=== PATIENT | female | born 1960 | race American Indian/Alaskan Native ===

== ENCOUNTER 2018-10-29 10:48 | Outpatient (CLI) | payer BC ==
--- NOTE | 2018-10-29 11:36 | Mammography Report ---
Bilateral mammogram: No previous studies of the liver. CAD study utilized. Findings: Heterogeneous breast parenchyma bilaterally. Focal asymmetry in the left mid breast. A focal architectural distortion in the lower posterior right breast. Benign axillary nodes. No microcalcification. Impression: Focal asymmetry left breast and focal architectural distortion right breast. Recommend comparison with previous studies. If previous studies are not available spot compression and sonographic examination recommended.
--- NOTE | 2018-10-29 13:06 | XRay Report ---
Cervical spine 4 views: History: Severe achalasia. Findings: Normal height of vertebral bodies. Decrease in height of C4-C5, C5-C6 and C6-7 with evidence of cervical spondylosis. Normal prevertebral soft tissue. No fracture. Impression: Spondylosis lower cervical spine.
== END 2018-10-29 10:49 | disposition home or self-care (01) ==
LOC: MAMMO 10:48
PROVIDERS: ATTEND Clinical Nurse Specialist Adult Health
DX: Z12.31 Encounter for screening mammogram for malignant neoplasm of breast (principal); M47.812 Spondylosis without myelopathy or radiculopathy, cervical region; Z88.0 Allergy status to penicillin
CPT/HCPCS: 72050; 77067

== ENCOUNTER 2021-08-21 11:33 | Outpatient (CLI) | payer OTHER ==
--- NOTE | 2021-08-21 13:57 | XRay Report ---
CHEST 2 VIEWS INDICATION / CLINICAL INFORMATION: R76.12. COMPARISON: 05/15/2018 FINDINGS: SUPPORT DEVICES: None. HEART / MEDIASTINUM: No significant abnormality. LUNGS / PLEURA: No significant pulmonary or pleural abnormality. No pneumothorax. ADDITIONAL FINDINGS: No significant additional findings. IMPRESSION: 1. No acute findings. Signer Name: Amado Anderson MD Signed: 08/21/2021 1:53 PM Workstation Name: [email or web address]
--- NOTE | 2021-08-22 08:59 | Mammography Report ---
DIGITAL SCREENING MAMMOGRAM WITH CAD, 08/21/2021 CLINICAL INFORMATION / INDICATION: Routine screening TECHNIQUE: Digital bilateral 2D mammography was obtained in the craniocaudal and mediolateral obliqu e projections. This examination was interpreted with the benefit of Computer-Aided Detection analysis . COMPARISON: 10/29/2018 FINDINGS: Breast Density: The breasts are heterogeneously dense, which may obscure small masses. No dominant mass, suspicious calcifications, or architectural distortion in either breast. Mild benign-appearing calcifications are noted. IMPRESSION: No mammographic evidence of malignancy. Follow up recommendation: Routine yearly BI-RADS Category 2: BENIGN. A "normal" or negative report should not discourage follow up or biopsy of a clinically significant f inding. A written summary of these findings will be mailed to the patient. The patient will be entered into a mammography reporting system which will generate a reminder letter for the patient's next appointmen t at the appropriate interval. The [employer] recommends yearly mammograms starting at age 40 and continuing as l yevgeniy as a woman is in good health. Breast MRI is recommended for women with an approximate 20-25% or greater lifetime risk of breast cancer, including women with a strong family history of breast or ova kathy cancer or who have been treated for Hodgkin's disease. Signer Name: Enrrique Woodson MD Signed: 08/22/2021 8:54 AM Workstation Name: [id number]
== END 2021-08-21 11:34 | disposition home or self-care (01) ==
LOC: XRAY 11:33
PROVIDERS: ATTEND Clinical Nurse Specialist Adult Health
DX: Z12.31 Encounter for screening mammogram for malignant neoplasm of breast (principal); R76.12 Nonspecific reaction to cell mediated immunity measurement of gamma interferon antigen response without active tuberculosis; N64.89 Other specified disorders of breast
CPT/HCPCS: 71046; 77067

== ENCOUNTER 2021-10-19 15:16 | Emergency (ER) | payer OTHER ==
[2021-10-19] MEDS ORDERED: ASPIRIN 325 MG TAB PO ONE (16:02)
--- NOTE | 2021-10-19 16:03 | Emergency Department Report ---
ED Chest Pain HPI - General Chief Complaint: Chest Pain Stated Complaint: SOB/CHEST PAINS PUI?: No Time Seen by Provider: 10/19/21 15:56 Source: patient Mode of arrival: Ambulatory Limitations: No Limitations - History of Present Illness Initial Comments: Patient is a 61-year-old female that presents emergency room with complaints of chest pain or shortness of breath. Patient states her chest pain started 2 days ago. Patient states is in the center of her chest. Patient states her chest pain is worse with exertion and better with rest. Patient states her shortness of breath started approximately 2 weeks ago. Patient states her shortness of breath is worsening. Patient states her shortness of breath is better with rest and worse with exertion. Patient states she not able to walk 5 or 6 steps without getting out of breath. Patient denies diaphoresis. Patient denies fever and chills. Patient denies nausea and vomiting. Patient states she has a past medical history of hypertension. Patient that she is taking losartan and a diuretic for her blood pressure. Patient states that her blood pressure is controlled on her current regimen. Patient states she went to her primary care today and her primary care resented to the emergency room for evaluation. Patient states her primary care told her it could be CHF. Patient denies recent travel. Patient denies recent international travel. Patient denies exposure to the novel coronavirus. Patient denies sick contacts. Patient denies fever and chills. Patient denies cough. Patient denies diarrhea. Patient denies coming in contact with anybody with symptoms of the novel coronavirus. MD Complaint: chest pain -: Sudden Onset: during rest Pain Location: substernal, left chest Pain Radiation: LUE Severity: moderate Severity scale (0 -10): 6 Quality: aching, heaviness, pressure, squeezing Consistency: constant Improves With: rest Worsens With: exertion re: dyspnea, sense of impending doom. denies: nausea, vomting, diaphoresis Other Symptoms: leg swelling, palpitations. denies: cough, fever, syncope, rash, acid taste in mouth, burping Treatments Prior to Arrival: none Aspirin use within the Past 7 Days: (0) No - Related Data On Oral Contraceptives: No Previous Rx's Medication Instructions Recorded Last Taken Type Furosemide [Lasix] 20 mg PO QDAY 30 Days #30 tablet 10/19/21 Unknown Rx Potassium Chloride [K-Dur] 10 meq PO QDAY 30 Days #30 tab 10/19/21 Unknown Rx Allergies Allergy/AdvReac Type Severity Reaction Status Date / Time Penicillins AdvReac Swelling Verified 10/19/21 15:17 Heart Score - HEART Score History: Slightly suspicious EKG: Normal Age: 45-65 Risk factors: No known risk factors Troponin: < normal limit HEART Score: 1 - EKG Read Time Time EKG Completed: 15:19 EKG Read Time: 15:23 ED Review of Systems ROS: Stated complaint: SOB/CHEST PAINS Other details as noted in HPI Constitutional: denies: chills, fever Eyes: denies: eye pain, eye discharge, vision change ENT: denies: ear pain, throat pain Respiratory: shortness of breath, SOB with exertion, SOB at rest. denies: cough, wheezing Cardiovascular: as per HPI, chest pain, palpitations, dyspnea on exertion, orthopnea Endocrine: no symptoms reported Gastrointestinal: denies: abdominal pain, nausea, diarrhea Genitourinary: denies: urgency, dysuria, discharge Musculoskeletal: denies: back pain, joint swelling, arthralgia Skin: denies: rash, lesions Neurological: denies: headache, weakness, paresthesias Psychiatric: denies: anxiety, depression Hematological/Lymphatic: denies: easy bleeding, easy bruising ED Past Medical Hx - Past Medical History Previous Medical History?: Yes Hx Hypertension: Yes - Surgical History Past Surgical History?: Yes Additional Surgical History: C SECTION - Family History Family history: no significant - Social History Smoking Status: Never Smoker Substance Use Type: None - Medications Home Medications: Home Medications Medication Instructions Recorded Confirmed Last Taken Type Furosemide [Lasix] 20 mg PO QDAY 30 Days #30 tablet 10/19/21 Unknown Rx Potassium Chloride [K-Dur] 10 meq PO QDAY 30 Days #30 tab 10/19/21 Unknown Rx ED Physical Exam - General Limitations: No Limitations General appearance: alert, in no apparent distress - Head Head exam: Present: atraumatic, normocephalic - Eye Eye exam: Present: normal appearance - ENT ENT exam: Present: mucous membranes moist - Neck Neck exam: Present: normal inspection - Respiratory Respiratory exam: Present: normal lung sounds bilaterally. Absent: respiratory distress - Cardiovascular Cardiovascular Exam: Present: regular rate, normal rhythm. Absent: systolic murmur, diastolic murmur, rubs, gallop - GI/Abdominal GI/Abdominal exam: Present: soft, normal bowel sounds - Extremities Exam Extremities exam: Present: full ROM, normal capillary refill, pedal edema. Absent: tenderness, calf tenderness - Back Exam Back exam: Present: normal inspection - Neurological Exam Neurological exam: Present: alert, oriented X3 - Psychiatric Psychiatric exam: Present: normal affect, normal mood - Skin Skin exam: Present: warm, dry, intact, normal color. Absent: rash ED Course Vital Signs 10/19/21 10/19/21 10/19/21 15:17 17:39 17:46 Temperature 98.2 F Pulse Rate 74 58 L Respiratory 32 H 24 Rate Blood Pressure 151/89 Blood Pressure 172/101 [Right] O2 Sat by Pulse 100 100 Oximetry 10/19/21 10/19/21 10/19/21 18:00 18:16 18:30 Temperature Pulse Rate 57 L 60 59 L Respiratory 16 17 15 Rate Blood Pressure 139/92 139/92 162/96 Blood Pressure [Right] O2 Sat by Pulse 100 90 100 Oximetry 10/19/21 10/19/21 18:46 21:06 Temperature 98 F Pulse Rate 57 L 66 Respiratory 12 18 Rate Blood Pressure 162/96 Blood Pressure 159/99 [Right] O2 Sat by Pulse 98 99 Oximetry - Reevaluation(s) Reevaluation #1: I discussed the results with the patient. Patient states she does not want to stay in the hospital. Patient states she just wants to be treated and sent home. Patient will be given IV Lasix and prepared for discharge. Patient states she is not having any shortness of breath or chest pain at this time. 10/19/21 18:15 Reevaluation #2: Patient states she is ambulating better. Patient denies chest pain or shortness of breath. Patient has ambulated to the bathroom multiple times due to the Lasix. Patient is diuresing well. Patient states she is ready to go. Patient states she is feeling much better. I discussed all results and clinical findings with patient. I discussed plan of care with patient. Patient agrees with plan of care. Patient is stable for discharge. Patient will be discharged home. Patient given discharge instructions. Patient voiced understanding of discharge instructions. Patient instructed that she will need a chest CT to be done as an outpatient to better evaluate a lung nodule. 10/19/21 21:26 ANURAG score - Anurag Score Age > 65: (0) No Aspirin use within the Past 7 Days: (0) No 3 or more CAD Risk Factors: (0) No 2 or more Angina events in past 24 hrs: (0) No Known CAD with more than 50% Stenosis: (0) No Elevated Cardiac Markers: (0) No ST Deviation Greater than 0.5mm: (0) No ANURAG Score: 0 ED Medical Decision Making - Lab Data Result diagrams: 10/19/21 17:13 10/19/21 17:13 - EKG Data -: EKG Interpreted by Me EKG shows normal: sinus rhythm, axis, intervals, QRS complexes, ST-T waves Rate: normal - Radiology Data Radiology results: report reviewed, image reviewed interpreted by me: Chest x-ray: No pneumonia, no pneumothorax, no foreign body, no osseous findings, no acute findings CHEST 2 VIEWS INDICATION / CLINICAL INFORMATION: Chest Pain. COMPARISON: 08/21/2021 and 05/15/2018 FINDINGS: SUPPORT DEVICES: None. HEART / MEDIASTINUM: No significant abnormality. LUNGS / PLEURA: No focal consolidation or pleural effusion. There is a nodular density within the right lower lung. No pneumothorax. ADDITIONAL FINDINGS: No significant additional findings. IMPRESSION: 1. No acute cardiopulmonary abnormality. 2. Nodular density within the right lower lobe. CT of the chest recommended for further evaluation. - Medical Decision Making Patient is a 61-year-old female that presents emergency room for shortness of breath and chest pain. Patient has been going on for 2 days. Patient shortness breath been going on for 2 weeks. Patient symptoms are worsening and she went to her primary care in the primary care center here for further evaluation. Patient had labs done which were essentially unremarkable. Patient had a mild elevation in her BNP at 49. Patient had a normal chest x-ray. Patient on exam found to have lower extremity swelling. Patient was given Lasix. Prior to the patient given Lasix her symptoms have resolved. Patient states that her ability to get around and her shortness of breath dyspnea exertion were vastly improved with the Lasix. Patient ambulated without difficulty and was not hypoxic with ambulation while in the ER. Patient's sats remained stable. Patient's vital signs remained stable. Patient's swelling in her legs improved after Lasix. Patient responded well to treatment. I discussed admission with the patient and the patient states she does not want to stay in the hospital. Patient is believed to be stable enough to be worked up as an outpatient. Patient referred to cardiology. Patient given a Lasix prescription and potassium prescription to be taken as an outpatient. Patient also instructed to have a low-salt heart healthy diet. Patient instructed to increase water. Patient's chest x-ray was negative for CHF changes and her lung sounds were clear. However on the chest x-ray patient was noted to have a lung nodule and patient will require a CT scan as an outpatient. I discussed all the results with the patient. Patient voiced understanding of the results. Patient given discharge instructions. Patient discharged home. - Differential Diagnosis CHF, fluid retention, hypertension, edema Critical Care Time: Yes Critical care time in (mins) excluding proc time.: 35 Critical care attestation.: If time is entered above; I have spent that time in minutes in the direct care of this critically ill patient, excluding procedure time. Critical Care Time: 35 minutes ED Disposition Clinical Impression: New onset of congestive heart failure, Shortness of breath, Dyspnea on exertio n, Lung nodule, Lower extremity edema Chest pain Qualifiers: Chest pain type: unspecified Qualified Code(s): R07.9 - Chest pain, unspecified Disposition: 01 HOME / SELF CARE / HOMELESS Is pt being admited?: No Does the pt Need Aspirin: No Condition: Stable Instructions: Shortness of Breath, Adult, [id number], Heart Failure, Self Care, [id number], Edema, Nonspecific Chest Pain, Adult, Living With Heart Failure, Heart Failure Eating Plan Additional Instructions: Patient to follow-up with primary care in 2 to 3 days. Patient to follow-up with cardiology in 2 to 3 days. Patient to rest. Patient to increase water. Patient to avoid strenuous exercise or heavy lifting until cleared by cardiology. Patient to start aspirin 81 mg daily. Patient eat a heart healthy and a low-salt diet. Patient to take Tylenol as needed for pain. Patient to take meds as directed. Patient to return to the ER if condition worsens, changes or new symptoms arise. Prescriptions: Potassium Chloride [K-Dur] 10 meq PO QDAY 30 Days #30 tab Furosemide [Lasix] 20 mg PO QDAY 30 Days #30 tablet Referrals: MICHEL POND MD [Staff Physician] - 2-3 Days DERREK LEÓN MD [Staff Physician] - 2-3 Days Time of Disposition: 21:30
--- NOTE | 2021-10-19 17:02 | XRay Report ---
CHEST 2 VIEWS INDICATION / CLINICAL INFORMATION: Chest Pain. COMPARISON: 08/21/2021 and 05/15/2018 FINDINGS: SUPPORT DEVICES: None. HEART / MEDIASTINUM: No significant abnormality. LUNGS / PLEURA: No focal consolidation or pleural effusion. There is a nodular density within the rig ht lower lung. No pneumothorax. ADDITIONAL FINDINGS: No significant additional findings. IMPRESSION: 1. No acute cardiopulmonary abnormality. 2. Nodular density within the right lower lobe. CT of the chest recommended for further evaluation. Signer Name: John Cristina DO Signed: 10/19/2021 4:58 PM Workstation Name: [id number]
[2021-10-19 17:24] LABS: Basophils # (Auto) 0.1 K/mm3 (0.0-0.1); Basophils % (Auto) 0.6 % (0.0-1.8); Eosinophils # (Auto) 0.1 K/mm3 (0.0-0.4); Eosinophils % (Auto) 1.3 % (0.0-4.3); Hemoglobin 11.6 gm/dl (10.1-14.3); Lymphocytes # (Auto) 1.7 K/mm3 (1.2-5.4); Lymphocytes % (Auto) 20.4 % (13.4-35.0); Mean Corpuscular HGB Conc 33 % (30-34); Mean Corpuscular Volume 98 fl (79-97); Monocytes # (Auto) 0.7 K/mm3 (0.0-0.8); Monocytes % (Auto) 8.1 % (0.0-7.3); Platelet Count 265 K/mm3 (140-440); Red Blood Count 3.58 M/mm3 (3.65-5.03); Red Cell Distribution Width 15.9 % (13.2-15.2)
[2021-10-19 17:43] LABS: Alanine Aminotransferase 35 units/L (7-56); Albumin 4.1 g/dL (3.9-5); Blood Urea Nitrogen 18 mg/dL (7-17); Calcium 9.3 mg/dL (8.4-10.2); Hemolysis Index 14
[2021-10-19 18:02] LABS: INR 0.94 (0.87-1.13); Partial Thromboplastin Time 27.4 Sec. (24.2-36.6)
[2021-10-19 18:20] LABS: BUN/Creatinine Ratio 30
[2021-10-19] MEDS ORDERED: FUROSEMIDE 20 MG/2 ML INJ IV ONE (18:26)
[2021-10-19 21:07] VITALS: BP 159/99
--- NOTE | 2021-10-20 11:32 | Electrocardiograph Report ---
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
== END 2021-10-19 22:15 | disposition home or self-care (01) ==
LOC: ED 15:16
DX: I11.0 Hypertensive heart disease with heart failure (principal); I50.9 Heart failure, unspecified; R06.02 Shortness of breath; R07.9 Chest pain, unspecified; R06.09 Other forms of dyspnea; R22.43 Localized swelling, mass and lump, lower limb, bilateral
CPT/HCPCS: 36415; 71046; 80053; 82550; 82553; 83880; 84484; 85025; 85379; 85610; 85730; 93005; 96374; 99284; J1940